=== PATIENT | female | born 1995 | race Caucasian/White ===

== ENCOUNTER 2020-07-25 05:14 | Emergency (ER) | payer OTHER ==
[~2020-07-25] VITALS: Ht 162.6 cm; Wt 90.7 kg
[2020-07-25 05:18] VITALS: BP 130/77
[2020-07-25] MEDS ORDERED: IBU600 MG PO (05:41)
== END 2020-07-25 05:57 | disposition home or self-care (01) ==
LOC: ER 05:14
DX: K02.9 Dental caries, unspecified (principal)

== ENCOUNTER 2020-08-06 20:43 | Emergency (ER) | payer OTHER ==
[~2020-08-06] VITALS: Ht 162.6 cm; Wt 90.7 kg
[~2020-08-06 20:43] MED LIST: IBU600 MG PO
[2020-08-06] MEDS ORDERED: HYDROCODON-ACE1 EA11 PO (21:21)
[2020-08-06] MEDS ORDERED: PENICILLIN VK500 M1 PO (21:21)
[2020-08-06 22:22] VITALS: BP 144/99
== END 2020-08-06 22:23 | disposition home or self-care (01) ==
LOC: ER 20:43
DX: K02.9 Dental caries, unspecified (principal); K03.81 Cracked tooth; Z79.899 Other long term (current) drug therapy